=== PATIENT | male | born 1970 | race Caucasian/White ===

== ENCOUNTER 2019-01-01 08:43 | Emergency (ER) | payer MEDICAID ==
[~2019-01-01] VITALS: Ht 175.3 cm; Wt 122.7 kg
[2019-01-01 08:45] VITALS: BP 149/81; PULSE 67; RESP 18; Ht 175.3 cm; Wt 122.7 kg
[2019-01-01] MEDS ORDERED: KETOROLAC 30 MG INJ IM STA (09:26)
[2019-01-01] MEDS ORDERED: morphine 2 MG INJ IM STA (09:36)
[2019-01-01] MEDS ORDERED: LIDOCAINE 2% (MDV) 20 ML INJ INJ ONE (10:30)
[2019-01-01] MEDS ORDERED: DIPHTH/TET/ACEL PERTUSS (ADULT) 0.5 ML VIAL IM* ONE (10:30)
[2019-01-01] MEDS ORDERED: BUPIVACAINE 0.25% (MPF) 10 ML 10 ML VIAL INJ ONE (10:30)
[2019-01-01] MEDS ORDERED: BUPIVACAINE 0.25% (MPF) 30 ML INJ INJ ONE (11:00)
[2019-01-01] MEDS ORDERED: TRAM50TA2 PO (11:23)
[2019-01-01] MEDS ORDERED: AMOX1TAB10 PO (11:23)
[2019-01-01] MEDS ORDERED: IBUP-1542 PO (11:23)
[2019-01-01] MEDS ORDERED: CEFAZOLIN 1 GM INJ IM ONE (11:30)
--- NOTE | 2019-01-01 16:03 | ERD ---
ER Documentation Chief Complaint Chief Complaint nail through thumb today while at work with nail gun. HPI 48-year-old male with no reported past medical surgical history who presents post injury to left hand. Patient states he was at work using a nail gun when he accidentally had a nail go through right thumb. At time of presentation patient's glove on, nail through lateral aspect of right thumb through piece of wood board. With complaint of severe pain to right hand. At time of examination patient able to move all fingers, neurovascularly intact. No bleeding from site at the initial examination. ROS All systems reviewed and are negative except as per history of present illness. Medications Home Meds Active Scripts Ibuprofen* (Motrin*) 600 Mg Tab, 600 MG PO Q6, #30 TAB Prov:REBA AKHTAR-C 01/01/19 Tramadol HCl (Tramadol HCl) 50 Mg Tablet, 50 MG PO Q6 PRN for PAIN, #20 TAB Prov:REBA AKHTAR PA-C 01/01/19 Amoxicillin/Potassium Clav (Amox-Clav 875-125 mg Tablet) 875-125 mg Tab, 1 TAB PO BID for 7 Days, #14 TAB Prov:JECOLEEN MANRIQUEZHO PA-C 01/01/19 Allergies Allergies: Coded Allergies: No Known Allergy (Unverified , 01/01/19) PMhx/Soc Medical and Surgical Hx: pt denies Medical Hx, pt denies Surgical Hx Hx Alcohol Use: No Hx Substance Use: No Hx Tobacco Use: No Smoking Status: Never smoker FmHx Family History: No diabetes, No coronary disease, No other Physical Exam Vitals Vital Signs Date Temp Pulse Resp B/P (MAP) Pulse Ox O2 O2 Flow FiO2 Time Delivery Rate 01/01/19 98.6 67 18 149/81 97 08:45 (103) Physical Exam Const: No acute distress Head: Atraumatic Eyes: Normal Conjunctiva ENT: Normal External Ears, Nose and Mouth. Neck: Full range of motion. No meningismus. Resp: Clear to auscultation bilaterally Cardio: Regular rate and rhythm, no murmurs Abd: Soft, non tender, non distended. Normal bowel sounds Skin: No petechiae or rashes Back: No midline or flank tenderness Ext: Right thumb gloved, nail through lateral aspect of medial part of right thumb right through piece of wood, wiggling all of the fingers, SI LT all 5 digits Post removal of nail, moving all 5 digits, fallacy throughout, good pulses, SI LT throughout right upper extremity Neur: Awake and alert Psych: Normal Mood and Affect Results 24 hrs Current Medications Medications Dose Sig/Epi Start Time Status Last (Trade) Ordered Route PRN Stop Time Admin Dose Reason Admin Ketorolac 30 mg ONCE STAT 01/01/19 DC Tromethamine IM 09:26 01/01/19 (Toradol) 09:37 Morphine 2 mg ONCE STAT 01/01/19 DC 01/01/19 Sulfate IM 09:36 01/01/19 09:43 (morphine) 09:37 Lidocaine 20 ml ONCE ONCE 01/01/19 DC (Xylocaine INJ 10:30 01/01/19 2% (Mdv) 20 10:31 ml) Diphtheria/ 0.5 ml ONCE ONCE 01/01/19 DC 01/01/19 Tetanus/Acell IM* 10:30 01/01/19 10:33 Pertussis 10:31 (Adacel) Bupivacaine 10 ml ONCE ONCE 01/01/19 DC HCl INJ 10:30 01/01/19 (Marcaine 10:31 0.25% (Mpf) 10 ml) Bupivacaine 10 ml ONCE ONCE 01/01/19 DC HCl INJ 11:00 01/01/19 (Marcaine 11:01 0.25% (Mpf) 30 ml) Cefazolin 1 gm ONCE ONCE 01/01/19 DC 01/01/19 Sodium IM 11:30 01/01/19 11:30 (Ancef) 11:31 Procedures/MDM 48-year-old male who presents status post injury to right thumb. Patient had a nail go through her right thumb and onto a piece of wood while using a nail gun. X-ray of right hand/thumb confirming nail through soft tissue of right first digit, thumb. No evidence of bony involvement on imaging. They will cut with small pliers between finger and piece of wood. Case discussed with attending Dr. Castillo who assisted and completed nail removal. Nail removed with forceps without incident but did require small incision which did not require suture placement. Removal of foreign body, nail patient neurovascularly intact moving all fingers including first digit right hand. No foreign body retained site of injury. ED course: Tdap Single dose of ceftriaxone 1 g Pain control Will discharge with Augmentin and appropriate pain medication Patient advised to return in 2 days for wound check DISPOSITION PLAN: We discussed follow up with the patient's primary care doctor within 24 to 48 hours. Patient counseled regarding my diagnostic impression and care plan. Prior to discharge all questions answered. Pt agrees with treatment plan and understands strict return precautions. Precautionary instructions provided including instructions to return to the ER if not improving or for any worsening or changing symptoms or concerns. Disclaimer: Inadvertent spelling and grammatical errors are likely due to EHR/dictation software use and do not reflect on the overall quality of patient care. Also, please note that the electronic time recorded on this note does not necessarily reflect the actual time of the patient encounter. Departure Diagnosis: Primary Impression: Retained foreign body Condition: Stable Patient Instructions: Foreign Body, Soft Tissue (Removed) Additional Instructions: Call your primary care doctor TOMORROW for an appointment during the next 2-3 days.See the doctor sooner or return here if your condition worsens before your appointment time. Return in 48 hours for wound check. Take all antibiotics as prescribed to completion. REBA AKHTAR PA-C January 01, 2019 16:03
== END 2019-01-01 12:01 | disposition home or self-care (01) ==
LOC: FTE 08:43
DX: S60.351A Superficial foreign body of right thumb, initial encounter (principal); W45.0XXA Nail entering through skin, initial encounter; Y92.89 Other specified places as the place of occurrence of the external cause; Z23 Encounter for immunization
CPT/HCPCS: 10120; 73130; 90471; 90715; 96372; J0690; J1885; J2270; Z7502; Z7610

== ENCOUNTER 2019-01-03 08:22 | Emergency (ER) | payer MEDICAID ==
[~2019-01-03] VITALS: Ht 180.3 cm; Wt 80.0 kg
[~2019-01-03 08:22] MED LIST: AMOX1TAB10 PO; IBUP-1542 PO; TRAM50TA2 PO
[2019-01-03 08:26] VITALS: BP 139/76; PULSE 68; RESP 18; Ht 180.3 cm; Wt 80.0 kg
--- NOTE | 2019-01-03 09:27 | ERD ---
ER Documentation Chief Complaint Chief Complaint here for wound check on left hand HPI 48-year-old male presenting for wound check of his left hand. 2 days ago patient was using a nail gun and the nail went into his finger. The nail did not penetrate the bone and patient had full range of motion of his finger. He is taking antibiotics at home. He has had a splint on since the injury 2 days ago. He is right-hand dominant. Up-to-date on tetanus. Denies other medical problems. NKDA. Surgical history denies. Social history denies ROS All systems reviewed and are negative except as per history of present illness. Medications Home Meds Active Scripts Ibuprofen* (Motrin*) 600 Mg Tab, 600 MG PO Q6, #30 TAB Prov:REBA AKHTAR-C 01/01/19 Tramadol HCl (Tramadol HCl) 50 Mg Tablet, 50 MG PO Q6 PRN for PAIN, #20 TAB Prov:REBA AKHTAR PA-C 01/01/19 Amoxicillin/Potassium Clav (Amox-Clav 875-125 mg Tablet) 875-125 mg Tab, 1 TAB PO BID for 7 Days, #14 TAB Prov:COLEEN AKHTARHO PA-C 01/01/19 Allergies Allergies: Coded Allergies: No Known Allergy (Unverified , 01/01/19) PMhx/Soc Medical and Surgical Hx: pt denies Medical Hx, pt denies Surgical Hx Hx Alcohol Use: No Hx Substance Use: No Hx Tobacco Use: No Smoking Status: Never smoker FmHx Family History: No diabetes, No coronary disease, No other Physical Exam Vitals Vital Signs Date Temp Pulse Resp B/P (MAP) Pulse Ox O2 O2 Flow FiO2 Time Delivery Rate 01/03/19 98.4 68 18 139/76 97 08:26 (97) Physical Exam GENERAL: The patient is well-appearing, well-nourished, in no acute distress CHEST: Clear to auscultation bilaterally. There are no rales, wheezes or rhonchi. HEART: Regular rate and rhythm. No murmurs, clicks, rubs or gallops. EXTREMITIES: Equal pulses bilaterally. There is no peripheral clubbing, cyanosis or edema. No focal swelling or erythema. Full range of motion. Grossly neurovascularly intact. NEUROLOGIC: Alert and oriented. Cranial nerves II through XII intact. Motor strength in all 4 extremities with 5 out of 5 strength. Sensation grossly intact. SKIN: 2 puncture wound sites noted to the left thumb with no surrounding erythema or purulence. Mild tenderness to palpation. No lymphatic streaking. Procedures/MDM MDM: 48-year-old male presenting for wound check. Patient's wound appears to be healing appropriately. I have low suspicion for secondary infection. Patient has normal range of motion of his thumb and low suspicion for tendon or ligament rupture or injury. I have low suspicion for bony injury. Patient is discharged with strict ER precautions and recommended to keep taking antibiotics as previously prescribed. Patient is told symptoms change or worsen to return immediately to the ER. All questions answered at discharge Departure Diagnosis: Primary Impression: Encounter for wound re-check Condition: Stable Patient Instructions: Wound Check, Lac F/U (No Infection) Referrals: [facility] YOU HAVE RECEIVED A MEDICAL SCREENING EXAM AND THE RESULTS INDICATE THAT YOU DO NOT HAVE A CONDITION THAT REQUIRES URGENT TREATMENT IN THE EMERGENCY DEPARTMENT. FURTHER EVALUATION AND TREATMENT OF YOUR CONDITION CAN WAIT UNTIL YOU ARE SEEN IN YOUR DOCTORS OFFICE WITHIN THE NEXT 1-2 DAYS. IT IS YOUR RESPONSIBILITY TO MAKE AN APPOINTMENT FOR FOLOW-UP CARE. IF YOU HAVE A PRIMARY DOCTOR --you should call your primary doctor and schedule an appointment IF YOU DO NOT HAVE A PRIMARY DOCTOR YOU CAN CALL OUR PHYSICIAN REFERRAL HOTLINE AT IF YOU CAN NOT AFFORD TO SEE A PHYSICIAN YOU CAN CHOSE FROM THE FOLLOWING [facility] [address] [facility]. [facility] [address] [facility] [facility] [address] [facility] [facility] [address] [facility] [facility] [address] [facility]. [facility]. [address] Additional Instructions: FOLLOW UP WITH YOUR PRIMARY CARE PHYSICIAN TOMORROW.Return to this facility if you are not improving as expected. MOO JAVIER PA-C January 03, 2019 09:27
== END 2019-01-03 09:42 | disposition home or self-care (01) ==
LOC: FTE 08:22
DX: Z48.01 Encounter for change or removal of surgical wound dressing (principal)
CPT/HCPCS: 99281

== ENCOUNTER 2019-02-19 03:08 | Emergency (ER) | payer MEDICAID ==
[~2019-02-19] VITALS: Ht 170.2 cm; Wt 121.0 kg
[2019-02-19 03:10] VITALS: Ht 170.2 cm; Wt 121.0 kg
[2019-02-19] MEDS ORDERED: ONDANSETRON 4 MG INJ IV STA (03:25)
[2019-02-19] MEDS ORDERED: SOD CHLORIDE 0.9% 1,000 ML IV STA (03:25)
[2019-02-19] MEDS ORDERED: HYDROmorphONE 1 MG/ML SYG IV STA (03:25)
--- NOTE | 2019-02-19 03:43 | ERD ---
ER Documentation Chief Complaint Chief Complaint generalized AP x2 days w/ nausea. known umbilical hernia HPI This is a 49-year-old male who presents to the emergency room describing 2 days of generalized abdominal pain with nausea. His pain is now more localized to the right lower abdomen with slight radiation to the groin. Patient has a known umbilical hernia that is reducible. No vomiting. Lack of bowel movement for the past 12 hours is also noted. He denies any fevers or chills dysuria urgency or frequency. ROS All systems reviewed and are negative except as per history of present illness. Medications Home Meds Active Scripts Docusate Sodium* (Colace*) 100 Mg Capsule, 100 MG PO TID PRN for CONSTIPATION, #30 CAP Prov:ZEV DARNELL MD 02/19/19 Dicyclomine HCl (Dicyclomine HCl) 10 Mg Capsule, 10 MG PO TID PRN for ABDOMINAL CRAMPING, #20 CAP Prov:ZEV DARNELL MD 02/19/19 Reported Medications Amlodipine Besylate* (Norvasc*) 5 Mg Tablet, 5 MG PO DAILY, TAB 02/19/19 Discontinued Scripts Ibuprofen* (Motrin*) 600 Mg Tab, 600 MG PO Q6, #30 TAB Prov:REBA AKHTAR-C 01/01/19 Tramadol HCl (Tramadol HCl) 50 Mg Tablet, 50 MG PO Q6 PRN for PAIN, #20 TAB Prov:REBA AKHTAR-C 01/01/19 Amoxicillin/Potassium Clav (Amox-Clav 875-125 mg Tablet) 875-125 mg Tab, 1 TAB PO BID for 7 Days, #14 TAB Prov:REBA AKHTARC 01/01/19 Allergies Allergies: Coded Allergies: No Known Allergy (Unverified , 01/01/19) PMhx/Soc Hx Cardiac Disorders: Yes (htn) Hx Alcohol Use: No Hx Substance Use: No Hx Tobacco Use: No Smoking Status: Never smoker FmHx Family History: No diabetes Physical Exam Vitals Vital Signs Date Temp Pulse Resp B/P (MAP) Pulse Ox O2 O2 Flow FiO2 Time Delivery Rate 02/19/19 67 16 125/95 97 Room Air 05:08 (105) 02/19/19 97.4 65 16 137/104 97 Room Air 03:20 (115) 02/19/19 97.4 66 16 132/83 97 03:10 (99) Physical Exam General: Well developed, well nourished, no acute distress Head: Normocephalic, atraumatic. Eyes: Pupils equally reactive, EOM intact ENT: Moist mucous membranes Neck: Supple, no lymphadenopathy Respiratory: Lungs clear bilaterally, no distress Cardiovascular: RRR, no murmurs, rubs, or gallops Abdominal: Protuberant and soft with periumbilical hernia that is reducible but recurs, no inguinal hernia : Bilateral descended testicles without swelling, intact reflexes, no focal tenderness. MSK: No edema, no unilateral swelling, 5/5 strength Neurologic: Alert and oriented, moving all extremities, normal speech, no focal weakness, no cerebellar signs Skin: No rash Psych: Normal mood Result Diagram: 02/19/19 0326 02/19/19 0326 Results 24 hrs Laboratory Tests Test 02/19/19 03:26 02/19/19 05:25 White Blood Count 9.6 10^3/ul Red Blood Count 4.98 10^6/ul Hemoglobin 14.2 g/dl Hematocrit 41.8 % Mean Corpuscular Volume 83.9 fl Mean Corpuscular Hemoglobin 28.5 pg Mean Corpuscular Hemoglobin Concent 34.0 g/dl Red Cell Distribution Width 12.5 % Platelet Count 283 10^3/UL Mean Platelet Volume 9.4 fl Immature Granulocytes % 0.300 % Neutrophils % 49.6 % Lymphocytes % 39.4 % Monocytes % 7.3 % Eosinophils % 2.5 % Basophils % 0.9 % Nucleated Red Blood Cells % 0.0 /100WBC Immature Granulocytes # 0.030 10^3/ul Neutrophils # 4.8 10^3/ul Lymphocytes # 3.8 10^3/ul Monocytes # 0.7 10^3/ul Eosinophils # 0.2 10^3/ul Basophils # 0.1 10^3/ul Nucleated Red Blood Cells # 0.0 10^3/ul Sodium Level 144 mmol/L Potassium Level 4.0 mmol/L Chloride Level 107 mmol/L Carbon Dioxide Level 25 mmol/L Anion Gap 12 Blood Urea Nitrogen 8 mg/dl Creatinine 0.71 mg/dl Est Glomerular Filtrat Rate mL/min > 60 mL/min Glucose Level 134 mg/dl Calcium Level 9.2 mg/dl Total Bilirubin 0.3 mg/dl Direct Bilirubin 0.00 mg/dl Indirect Bilirubin 0.3 mg/dl Aspartate Amino Transf (AST/SGOT) 25 IU/L Alanine Aminotransferase (ALT/SGPT) 37 IU/L Alkaline Phosphatase 105 IU/L Total Protein 7.3 g/dl Albumin 4.1 g/dl Globulin 3.20 g/dl Albumin/Globulin Ratio 1.28 Lipase 142 U/L Urine Color STRAW Urine Clarity CLEAR Urine pH 6.0 Urine Specific [place] 1.009 Urine Ketones NEGATIVE mg/dL Urine Nitrite NEGATIVE mg/dL Urine Bilirubin NEGATIVE mg/dL Urine Urobilinogen NEGATIVE mg/dL Urine Leukocyte Esterase TRACE Katrina/ul Urine Microscopic RBC 0 /HPF Urine Microscopic WBC 3 /HPF Urine Hemoglobin NEGATIVE mg/dL Urine Glucose NEGATIVE mg/dL Urine Total Protein NEGATIVE mg/dl Current Medications Medications Dose Sig/Epi Start Time Status Last (Trade) Ordered Route PRN Stop Time Admin Dose Reason Admin Sodium 1,000 ml @ Q1H STAT 02/19/19 DC 02/19/19 Chloride 1,000 mls/hr IV 03:25 03:30 02/19/19 04:24 1 mg ONCE STAT 02/19/19 DC 02/19/19 Hydromorphone IV 03:25 03:30 HCl 02/19/19 03:26 (Dilaudid) Ondansetron 4 mg ONCE STAT 02/19/19 DC 02/19/19 HCl (Zofran IV 03:25 03:30 Inj) 02/19/19 03:26 Procedures/MDM EKG, MONITORS, & DIAGNOSTIC IMAGING: CT abdomen and pelvis IMPRESSION: 1. Hepatomegaly with fatty infiltration. 2. Large fat containing umbilical hernia. RPTAT:HGST LAB INTERPRETATION: I reviewed the laboratory testing and it shows [no evidence of acute process] MEDICAL DECISION MAKING: The patient's abdominal exam is mostly benign but he does have right lower quadrant and right-sided abdominal discomfort. Differential is exquisitely broad. I do not believe the patient's presentation is consistent with bowel obstruction secondary to strangulate or incarcerated hernia as the hernia is easily reducible. Consider possible ureterolithiasis, acute appendicitis among others. The patient has no clinical signs of acute testicular torsion. CT imaging would be appropriate. ER COURSE: * The patient was given IV fluids and pain control medication with a dramatic improvement. His laboratory testing is unrevealing. CT imaging is nonspecific and shows no acute process. * Patient does describe some mild constipation which could explain the patient's symptomatology. Again the patient has a benign abdominal exam on repeat examination and has a benign exam. I do not believe a scrotal testicle ultrasound is necessary at this time given no focal tenderness or no focal signs or symptoms concerning for torsion. * At this point the patient can be safely discharged home. He is to follow-up with a general surgeon for his umbilical hernia but it does not appear to be i ncarcerated or strangulate or causing obstructive symptoms currently. CONSULTATION: [None] DISPOSITION PLAN: The patient does not have an identifiable emergent medical condition that warrants inpatient hospitalization at this time. The patient is deemed safe for discharge with outpatient follow-up. We discussed follow up with the patient's primary care doctor within 24 to 48 hours as needed. We also discussed return to the emergency room for worsening symptoms or worsening condition. Outpatient referral: General surgeon as needed Discharge Medications: Bentyl and Colace Departure Diagnosis: Primary Impression: Umbilical hernia Obstruction and gangrene presence: without obstruction or gangrene Qualified Codes: K42.9 - Umbilical hernia without obstruction or gangrene Additional Impression: Abdominal pain Abdominal location: generalized Qualified Codes: R10.84 - Generalized abdominal pain Condition: Stable ZEV DARNELL MD Feb 19, 2019 03:42
[2019-02-19] MEDS ORDERED: AMLO5TAB4 PO (04:45)
[2019-02-19] MEDS ORDERED: DICY10CA40 PO (05:49)
[2019-02-19] MEDS ORDERED: DOCU-144 PO (05:49)
[2019-02-19 05:55] VITALS: BP 114/76; PULSE 60; RESP 18
== END 2019-02-19 06:03 | disposition home or self-care (01) ==
LOC: E/R 03:08
DX: K42.9 Umbilical hernia without obstruction or gangrene (principal); I10 Essential (primary) hypertension
CPT/HCPCS: 36415; 74176; 80053; 81001; 83690; 85025; 96361; 96374; 96375; J1170; J2405; J7030; Z7502